=== PATIENT | female | born 1995 ===

== ENCOUNTER 2017-08-06 19:38 | Emergency (ER) | payer MEDICAID ==
[2017-08-06 20:02] VITALS: BP 127/84; PULSE 84; RESP 16; TEMP 98.3; O2SAT 100
--- NOTE | 2017-08-06 20:54 | ED PDOC ---
HPI: General Adult Time Seen by Provider: 08/06/17 20:08 Chief Complaint (Nursing): ENT Problem Chief Complaint (Provider): Right ear pain History Per: Patient History/Exam Limitations: no limitations Current Symptoms Are (Timing): Still Present Additional Complaint(s): 22-year-old female presents with foreign body sensation to the right ear. Patient was taking a shower at 5 PM and felt something go inside of her ear. She has had discomfort since then. Patient tried to apply oil to right ear to remove object but was unable to so she came here. Past Medical History Reviewed: Historical Data, Nursing Documentation, Vital Signs Vital Signs: Last Vital Signs Temp 98.3 F 08/06/17 20:00 Pulse 84 08/06/17 20:00 Resp 16 08/06/17 20:00 BP 127/84 08/06/17 20:00 Pulse Ox 100 08/06/17 20:55 - Medical History PMH: No Chronic Diseases - Surgical History Surgical History: No Surg Hx - Family History Family History: States: No Known Family Hx - Living Arrangements Living Arrangements: With Family - Social History Current smoker - smoking cessation education provided: No Alcohol: None Drugs: Denies - Home Medications Home Medications: Ambulatory Orders Medication Instructions Recorded Ibuprofen [Motrin] 600 mg PO Q6 PRN #15 tab 08/06/17 traMADol [Ultram] 50 mg PO TID PRN #15 tab 08/06/17 - Allergies Allergies/Adverse Reactions: Allergies Allergy/AdvReac Type Severity Reaction Status Date / Time No Known Allergies Allergy Verified 08/06/17 20:00 Review of Systems ROS Statement: Except As Marked, All Systems Reviewed And Found Negative (As per HPI, otherwise negative) ENT: Positive for: Other (right ear foreign body sensation) Neurological: Negative for: Headache, Dizziness Physical Exam - Reviewed Nursing Documentation Reviewed: Yes Vital Signs Reviewed: Yes - Physical Exam Appears: Positive for: Well, Non-toxic, No Acute Distress Head Exam: Positive for: NORMAL INSPECTION Skin: Positive for: Normal Color. Negative for: Rash Eye Exam: Positive for: Normal appearance ENT: Positive for: Other (foreign object noted in the right ear (appears to be a rounded bead), no active drainage or bleeding noted) Neck: Positive for: Normal Cardiovascular/Chest: Positive for: Regular Rate, Rhythm Respiratory: Positive for: Normal Breath Sounds Extremity: Positive for: Normal ROM Neurologic/Psych: Positive for: Alert, Oriented (x3) - Laboratory Results Urine POC: Negative - ECG O2 Sat by Pulse Oximetry: 100 (RA) Pulse Ox Interpretation: Normal Medical Decision Making Medical Decision Making: Time: 2050 Initial Impression: Foreign object in right ear Several attempts were made by AJ using ballooned syringe to remove the foreign body from right ear but unable to remove using the tool. Additional attempts made using a curette however foreign body was unable to be removed. Dr. Abad at bedside also tried FB removal with suction and balloon syringe but FB could not be removed. Patient was given Motrin and tramadol in ED for pain control. She was referred to ENT for follow up DONI. Patient is stable for discharge. Scribe Attestation: Documented by Jennifer Barrientos, acting as a scribe for Lety Aburto PA-C. Provider Scribe Attestation: All medical record entries made by the Scribe were at my direction and personally dictated by me. I have reviewed the chart and agree that the record accurately reflects my personal performance of the history, physical exam, medical decision making, and the department course for this patient. I have also personally directed, reviewed, and agree with the discharge instructions and disposition. Disposition - Clinical Impression Clinical Impression: Foreign body in ear - Patient ED Disposition Is Patient to be Admitted: No Counseled Patient/Family Regarding: Diagnosis, Need For Followup, Rx Given - Disposition Referrals: Chris Enriquez MD [Primary Care Provider] - Butch Quezada MD [Staff Provider] - Disposition: Routine/Home Disposition Time: 21:29 Condition: STABLE Additional Instructions: FOLLOW UP WITH EAR, NOSE AND THROAT DONI Prescriptions: Ibuprofen [Motrin] 600 mg PO Q6 PRN #15 tab PRN Reason: Pain, Moderate (4-7) traMADol [Ultram] 50 mg PO TID PRN #15 tab PRN Reason: Pain, Moderate (4-7) Instructions: Removing Objects Stuck in the Ear Forms: [employer] (Polish), [facility] School/Work Excuse
== END 2017-08-06 23:02 | disposition home or self-care (01) ==
LOC: H.ER 19:38
DX: S00.451A Superficial foreign body of right ear, initial encounter (principal); Y92.89 Other specified places as the place of occurrence of the external cause